=== PATIENT | female | born 1980 | race Two or more races ===

== ENCOUNTER 2021-12-23 16:09 | Outpatient (CLI) | payer OTHER, SELFPAY ==
[2021-12-23 21:44] LABS: Albumin* 3.8 g/dL (3.3-5.0); Chloride* 104 mmol/L (96-114); Sodium* 136 mmol/L (135-149)
[2021-12-23 21:45] LABS: Potassium* 4.5 mmol/L (3.6-5.1)
[2021-12-23 21:47] LABS: Alkaline Phosphatase* 113 U/L (40-150); Aspartate Amino Transferase* 27 U/L (12-35); Bilirubin Total* 0.2 mg/dL (0.1-1.5); Blood Urea Nitrogen* 14 mg/dL (5-24); Carbon Dioxide* 24 mmol/L (20-32); Creatinine* 0.8 mg/dL (0.5-1.5); Estimated Glomerular Filt Rate 96 ml/min; Total Protein* 9.7 g/dL (6.0-8.3)
[2021-12-23 21:48] LABS: Alanine Aminotransferase* 18 U/L (4-35); Calcium* 8.9 mg/dL (8.4-10.6); Glucose* 116 mg/dL (60-115)
[2021-12-23 21:50] LABS: NT Pro B Type NatriureticPept* 28 PG/mL (0-125)
== END 2021-12-23 16:10 | disposition home or self-care (01) ==
PROVIDERS: PCP Physician Assistant Medical; Visit Provider Physician Assistant Medical
DX: L73.2 Hidradenitis suppurativa (principal); R06.02 Shortness of breath; D64.9 Anemia, unspecified; F41.9 Anxiety disorder, unspecified
CPT/HCPCS: 80053; 83880; 84443

== ENCOUNTER 2022-09-15 12:13 | Outpatient (CLI) | payer BC, SELFPAY | END 2022-09-15 12:14 | disposition home or self-care (01) | PROVIDERS: PCP Physician Assistant Medical; Visit Provider Physician Assistant Medical | DX: R53.83 Other fatigue (principal); E11.9 Type 2 diabetes mellitus without complications; D64.9 Anemia, unspecified; R03.0 Elevated blood-pressure reading, without diagnosis of hypertension; E55.9 Vitamin D deficiency, unspecified; E78.5 Hyperlipidemia, unspecified; F41.9 Anxiety disorder, unspecified; Z01.818 Encounter for other preprocedural examination | CPT/HCPCS: 80053; 82607; 82746; 83540; 83550 ==

== ENCOUNTER 2022-09-23 06:45 | Day surgery (SDC) | payer BC, SELFPAY ==
[2022-09-23] VITALS (14 sets, daily range): BP systolic 89–139; BP diastolic 53–84; PULSE 77–110; RESP 14–20; TEMP 36.2–36.7; O2SAT 97–100; BMI 52.9
[2022-09-23 07:06] LABS: HCG Qualitative* Negative (Negative)
--- NOTE | 2022-09-23 07:51 | W.ANESCHARGE ---
Anesthesia Charges Start Date/Time Anesthesia Start Date: 09/23/22 Anesthesia Start Time: 08:29 Stop Date/Time Anesthesia Stop Date: 09/23/22 Anesthesia Stop Time: 09:32
--- NOTE | 2022-09-23 08:21 | SUR.PREOP ---
I have reviewed and concur with all assessments, medication administration, and documentation completed by Sissy Gimenez, student nurse.?
[2022-09-23] MEDS: LACTATED RINGERS 1000 ML 1,000 ML 100 ML IV (08:30)
[2022-09-23] MEDS: CEFAZOLIN 2 GM INJ IVP (08:52)
--- NOTE | 2022-09-23 09:17 | PM.ORPRC ---
Procedure Note Date of procedure: 09/23/22 Procedure: PREOPERATIVE DIAGNOSIS: Left knee medial meniscus tear POSTOPERATIVE DIAGNOSIS: Left knee medial meniscus tear NAME OF OPERATION: Left knee arthroscopic partial medial meniscectomy SURGEON: Max Brown MD PROVIDER EDUCATION SPECIALIST: ELDA Toscano ANESTHESIA: Spinal ESTIMATED BLOOD LOSS: 0 mL COMPLICATIONS: None SPECIMENS: None DRAINS: None PREOPERATIVE ANTIBIOTICS: Ancef 2 gram INDICATIONS: The patient is a 42-year-old with a history of left knee medial pain. MRI scan is consistent with a medial meniscus tear. Despite appropriate nonoperative management, including activity modification, antiinflammatories, [id number] pain medication, bracing, physical therapy, and injections they continue to have pain and disability. Operative intervention was offered. The risks, benefits and expected outcomes were discussed in detail. These included but were not limited to: Infection, bleeding, injury to blood vessel or nerve, venous thromboembolism. All questions were answered to their satisfaction. PROCEDURE: Spinal anesthesia was administered. The patient was placed supine on the operating room table. The left lower extremity was prepped and draped in the usual sterile fashion. The limb was exsanguinated with the Carlos bandage. The pneumatic tourniquet was inflated to 300 mmHg. A standard anterolateral portal was established. The arthroscope was introduced. The working portal was established anteromedially. Diagnostic arthroscopy was performed with findings as follows: The suprapatellar pouch is normal. Articular surface on the patella is normal. Articular surface on the trochlea shows a small patch of grade 2 change, just proximal to the notch. The medial gutter is normal. The medial compartment shows normal articular cartilage on the medial femoral condyle and medial tibial plateau. The medial meniscus has incomplete, partial-thickness tearing of the undersurface of junction of the midbody and posterior horn, with some associated synovitis. The root is intact. The notch shows the ACL to be intact. The lateral compartment shows normal articular cartilage on the lateral femoral condyle and lateral tibial plateau. The lateral meniscus is normal. The lateral gutter is normal. The undersurface of the midbody and posterior horn of the medial meniscus was debrided with the shaver, taken to a stable base. Arthroscopic instruments were removed, the portal sites were Steri-Stripped closed, the knee was infiltrated with 30 mL of 0.25% Marcaine without epinephrine. A dry dressing was applied, the tourniquet was released. Sponge and needle counts were correct x 2. The patient tolerated the procedure well. There were no apparent complications. They were carefully transferred to the hospital bed and taken to the postanesthesia care unit in satisfactory condition. PLAN: The patient will be discharged to home. They may weightbear as tolerates. Range of motion will be unrestricted. They will follow up in the office next week for a wound check.
[2022-09-23] MEDS: BUPIVACAINE 0.25% 30 ML INJECTION (09:20)
--- NOTE | 2022-09-23 09:37 | W.ANESCHARGE ---
Anesthesia Charges Start Date/Time Anesthesia Start Date: 09/23/22 Anesthesia Start Time: 08:29 Stop Date/Time Anesthesia Stop Date: 09/23/22 Anesthesia Stop Time: 09:32
== END 2022-09-23 11:42 | disposition home or self-care (01) ==
PROVIDERS: Anesthesiology; PCP Physician Assistant Medical; Visit Provider Orthopaedic Surgery
PROC: (CPT 29882; principal; 2022-09-23 08:15)
DX: M23.222 Derangement of posterior horn of medial meniscus due to old tear or injury, left knee (principal)
CPT/HCPCS: 29881; 01400; 82962; 84703; J0690; J2250; J3010; J3490; J7120

== ENCOUNTER 2022-11-10 15:15 | Outpatient (RCR) | payer BC, SELFPAY | END 2022-12-29 10:40 | disposition home or self-care (01) | PROVIDERS: PCP Physician Assistant Medical; Visit Provider Orthopaedic Surgery | DX: M25.562 Pain in left knee (principal); Z51.89 Encounter for other specified aftercare | CPT/HCPCS: 97110; 97140; 97161 ==